=== PATIENT | female | born 1945 | race Caucasian/White ===

== ENCOUNTER 2017-07-27 17:51 | Inpatient (IN) | payer MEDICARE, OTHER ==
[~2017-07-27] VITALS: Ht 160 cm; Wt 84.3 kg
[~2017-07-27 17:51] MED LIST: ALBUAER3 IN; ALPR0.5T PO; ARIP1TAB7 PO; ASPI-231 PO; ATOR40TA52 PO; CHOL20007 PO; CLON1TAB3 PO; DOCU-94 PO; FER325T PO; FLU05NSL; IBUP600T27 PO; LAMO200T34 PO; LEVO150T10 PO; OXYB10TA13 PO; SERT-160 PO; TOLT4CAP12 PO; TRAZ100T2 PO; VENL75CA78 PO
[2017-07-27 18:52] LABS: Basophils # (auto) 0 uL; Basophils % (auto) 0.3 % (0.0-2.0); Eosinophils # (auto) 0.2 uL; Hematocrit 34.4 % (36.0-46.0); Hemoglobin 11.7 g/dL (12.2-16.2); Lymphocytes # (auto) 1.4 uL; Lymphocytes % (auto) 16.6 % (10.0-50.0); Mean Corpuscular Hemoglobin 28.4 pg (28.0-32.0); Mean Corpuscular Hgb Conc. 34.2 g/dL (32.0-36.0); Mean Corpuscular Volume 83.3 fL (80.0-100.0); Monocytes # (auto) 0.7 uL; Monocytes % (auto) 8.5 % (0.0-12.0); Neutrophils # (auto) 6.1 uL; Neutrophils % (auto) 72.6 % (37.0-80.0); Nucleated Red Blood Cells % 0.1 %; Platelet Count (auto) 238 10^3/uL (140-450); Red Blood Cells 4.13 10^6/uL (4.0-5.20); Red Cell Distribution Width 14.3 % (11.8-14.3); White Blood Cell 8.4 10^3/uL (4.4-10.8)
[2017-07-27 19:15] LABS: Alanine Aminotransferase 24 U/L (13-56); Albumin 3.7 g/dL (3.4-5.0); Alkaline Phosphatase 94 U/L (45-117); Anion Gap 9 (5-15); Aspartate Aminotransferase 22 U/L (15-37); BUN/Creatinine Ratio 19.6; Bilirubin, Total 0.4 mg/dL (0.2-1.0); Blood Urea Nitrogen 22 mg/dL (7-18); Calcium 8.5 mg/dL (8.5-10.1); Carbon Dioxide 25 mmol/L (21-32); Chloride 106 mmol/L (98-107); GFR African American 62 mL/min; GFR Non-African American 51 mL/min; Glucose 130 mg/dL (74-106); Magnesium 2.5 mg/dL (1.6-2.6); Potassium 3.7 mmol/L (3.5-5.1); Sodium 140 mmol/L (136-145); Total Protein 7.7 g/dL (6.4-8.2)
[2017-07-27 19:18] LABS: Urine Bacteria NONE SEEN /hpf (None Seen); Urine Blood Negative /uL (Negative); Urine Specific Gravity 1.022 (1.001-1.035); Urine WBC 3 /hpf (0 - 5)
[2017-07-28 02:00] LABS: Amylase 71 U/L (25-115); Lipase 234 U/L (73-393)
[2017-07-28] MEDS ORDERED: HYDROcodone-ACET 10/325MG TAB PO ONE (03:45)
[2017-07-28] MEDS ORDERED: cefTRIAXone 1GM/10ml IVPUSH 10 ML IV ONE (03:45)
[2017-07-28] MEDS ORDERED: metroNIDAZOLE 500 MG TAB PO ONE (03:45)
[2017-07-28] MEDS ORDERED: TEMAZEPAM 15 MG CAP PO PRN (06:45)
[2017-07-28] MEDS ORDERED: HYDROcodone-ACET 5/325MG TAB PO PRN (06:45)
[2017-07-28] MEDS ORDERED: MORPHINE SULFATE 4 MG/ML SYR/VIAL IV PRN (06:45)
[2017-07-28] MEDS ORDERED: ONDANSETRON HCL 4 MG/2 ML VIAL IV PRN (06:45)
[2017-07-28] MEDS: SODIUM CHLORIDE 0.9% 1,000 ML IV SCH ×3 (07:00→20:34)
[2017-07-28] MEDS: LEVOTHYROXINE SODIUM 50 MCG TAB PO SCH (07:55)
[2017-07-28] MEDS: cefTRIAXone 1GM/10ml IVPUSH 10 ML IV SCH (09:03)
[2017-07-28] MEDS: PANTOPRAZOLE 40 MG/10 ML VIAL IV SCH (09:29)
[2017-07-28] MEDS: METOPROLOL SUCCINATE XL 50 MG TAB PO SCH (09:29)
[2017-07-28] MEDS: lamoTRIgine 100 MG TAB PO SCH (09:29)
[2017-07-28] MEDS: ENOXAPARIN SOD 40 MG/0.4 ML SYRINGE SC SCH (09:29)
[2017-07-28] MEDS: TOLTERODINE TARTRATE 1 MG TAB PO SCH ×2 (09:29→21:39)
[2017-07-28] MEDS: metroNIDAZOLE 500MG/100ML 100 ML IV SCH ×2 (13:08→21:38)
[2017-07-28 15:00] VITALS: BP 128/66
[2017-07-28] MEDS ORDERED: METO25TA62 PO (15:54)
[2017-07-28] MEDS ORDERED: ASPI81TA27 PO (15:54)
[2017-07-28] MEDS ORDERED: LEVO175T31 PO (15:54)
[2017-07-28] MEDS ORDERED: TRAZ100T2 PO (15:54)
[2017-07-28] MEDS ORDERED: MULT-228 PO (15:54)
[2017-07-28] MEDS: ACETAMINOPHEN 325 MG TAB PO PRN ×2 (15:56→21:40)
[2017-07-28 17:33] VITALS: BP 128/66
[2017-07-28 22:00] VITALS: BP 128/72
[2017-07-28] MEDS ORDERED: ATORVASTATIN 20 MG TAB PO SCH (22:00)
[2017-07-28] MEDS ORDERED: traZODone HCL 50 MG TAB PO SCH (22:00)
[2017-07-29 05:00] VITALS: BP 146/78
[2017-07-29] MEDS: metroNIDAZOLE 500MG/100ML 100 ML IV SCH (05:32)
[2017-07-29 05:48] LABS: Basophils # (auto) 0 uL; Basophils % (auto) 0.5 % (0.0-2.0); Eosinophils # (auto) 0.2 uL; Hematocrit 31.9 % (36.0-46.0); Lymphocytes # (auto) 1.4 uL; Lymphocytes % (auto) 23.8 % (10.0-50.0); Mean Corpuscular Hemoglobin 28.7 pg (28.0-32.0); Mean Corpuscular Hgb Conc. 34.4 g/dL (32.0-36.0); Mean Corpuscular Volume 83.3 fL (80.0-100.0); Monocytes # (auto) 0.5 uL; Monocytes % (auto) 8.2 % (0.0-12.0); Neutrophils # (auto) 3.8 uL; Neutrophils % (auto) 63.5 % (37.0-80.0); Nucleated Red Blood Cells % 0.1 %; Platelet Count (auto) 204 10^3/uL (140-450); Red Blood Cells 3.83 10^6/uL (4.0-5.20); Red Cell Distribution Width 14.3 % (11.8-14.3)
[2017-07-29] MEDS: LEVOTHYROXINE SODIUM 50 MCG TAB PO SCH (06:05)
[2017-07-29 06:12] LABS: INR 0.99 (0.9-1.15); Partial Thromboplastin Time 28.7 sec (22.64-33.71); Prothrombin Time 10.8 sec (9.37-12.3)
[2017-07-29 06:25] LABS: Albumin 3.4 g/dL (3.4-5.0); Bilirubin, Total 0.4 mg/dL (0.2-1.0); Calcium 8.7 mg/dL (8.5-10.1); Magnesium 2.3 mg/dL (1.6-2.6); Total Protein 6.9 g/dL (6.4-8.2)
[2017-07-29 09:00] VITALS: BP 147/72
[2017-07-29] MEDS: cefTRIAXone 1GM/10ml IVPUSH 10 ML IV SCH (09:42)
[2017-07-29] MEDS: PANTOPRAZOLE 40 MG/10 ML VIAL IV SCH (09:43)
[2017-07-29] MEDS: TOLTERODINE TARTRATE 1 MG TAB PO SCH (09:44)
[2017-07-29] MEDS: lamoTRIgine 100 MG TAB PO SCH (09:44)
[2017-07-29] MEDS: ENOXAPARIN SOD 40 MG/0.4 ML SYRINGE SC SCH (09:45)
[2017-07-29] MEDS: METOPROLOL SUCCINATE XL 50 MG TAB PO SCH (09:45)
[2017-07-29] MEDS: ACETAMINOPHEN 325 MG TAB PO PRN (12:36)
[2017-07-29 12:41] VITALS: BP 147/72
== END 2017-07-29 13:30 | disposition home or self-care (01) | DRG 690 ==
LOC: ER 17:57 → OVERFLOW 17:58 → WEST WING 07-28 15:00
PROVIDERS: ADMIT Nurse Practitioner; ATTEND Family Medicine
DX: N39.0 Urinary tract infection, site not specified (principal); K57.32 Diverticulitis of large intestine without perforation or abscess without bleeding; I11.9 Hypertensive heart disease without heart failure; J98.11 Atelectasis; E03.9 Hypothyroidism, unspecified; E78.5 Hyperlipidemia, unspecified; Z82.49 Family history of ischemic heart disease and other diseases of the circulatory system; Z88.0 Allergy status to penicillin; Z79.899 Other long term (current) drug therapy; Z83.3 Family history of diabetes mellitus
CPT/HCPCS: 36415; 74176; 80053; 81001; 82150; 83690; 83735; 84484; 85025; 85610; 85730; 87081; 93005; 96374; 96375; 96376; C9113; J2405; J3490